=== PATIENT | male | born 1980 | race Caucasian/White ===

== ENCOUNTER 2023-07-25 12:26 | Emergency (ER) | payer OTHER, SELFPAY ==
[2023-07-25 12:31] VITALS: BP 122/78; PULSE 96; RESP 22; TEMP 36.3; O2SAT 95; BMI 33.6
--- NOTE | 2023-07-25 12:49 | ED_ITS ---
HPI - General Adult General Date Seen: 07/25/23 Chief complaint: Neck Injury/Pain Stated complaint: inflamed neck Time Seen by Provider: 07/25/23 12:49 History of Present Illness HPI narrative: This is a 42-year-old male sent to the ER today from his clinic, by Dr. Victor, for evaluation of a swollen lump involving his neck. He is generally healthy. No long-term medical conditions, diabetes, hypertension, coronary disease. He notes that he has had symptoms of gradually increasing swelling and pressure involving the right side of his neck. He is not exactly sure when it started but perhaps a week or so ago. It has been getting steadily worse over time. It is not really associated with any sore tonsils or classic ?sore throat?. No fever chills. No cough. No trouble swallowing. He has noted that for the past few nights he has been having trouble breathing because of the pressure from his neck seems to make it hard for him to breathe. He has had trouble sleeping. He has not had any cough. No pain in his chest. No palpitations. No fever. No abdominal pain. He does note that he has had recent weight gain of about 15 lb. He feels like most of that is just fluid in around his neck. He feels like his face is a little bit more swollen normal as well. He has had a couple of headaches during the day. There is not really positional. He has not noted any flushing or plethora of his face. No previous history of any malignancy lymphadenopathy, immune system disorders. Related Data Home Medications Medication Instructions Recorded Confirmed No Known Home Medications 07/25/23 07/25/23 Allergies Allergy/AdvReac Type Severity Reaction Status Date / Time No Known Drug Allergies Allergy Verified 07/25/23 11:08 [facility] Social History Smoking Status: Never smoker Do you use any of these nicotine containing products: None Second hand tobacco smoke exposure: No How often do you have a drink containing alcohol: monthly or less How many standard drinks containing alcohol do you have on a typical day: 1 or 2 How often do you have six or more drinks on one occasion: Less than monthly AUDIT-C Alcohol total score: 2 Non-prescribed substance use: denies use service: No Exam Narrative: Exam Narrative: Constitutional: Appears well-developed and well-nourished. Alert. Conversant. Non toxic. HENT: Head: Atraumatic. Nose: Nose normal. Mouth/Throat: Oral mucosa is clear and moist. no trismus. Pharynx normal. Tonsils symmetric. No tonsillar enlargement, erythema, or exudate. Perhaps subtle swelling of his face but no plethora or redness. Eyes: Conjunctivae normal. EOM normal. Pupils equal, round, and reactive to light. No scleral icterus. Neck: He does have ill-defined soft tissue swelling on the right lateral side of his neck and right supraclavicular fossa. There is really no palpable mass. No fluctuance. No definite lymphadenopathy. It is mildly tender to palpation on the right lateral neck, posterior to the SCM muscle. No redness or warmth. There is some fullness in the supraclavicular fossa but no discrete lymph node there. Normal range of motion. Neck supple. No tracheal deviation present. Cardiovascular: Normal rate, regular rhythm. No gallop. No friction rub. No murmur heard. Symmetric radial artery pulses Pulmonary/Chest: Effort normal. No stridor. No respiratory distress. No wheezes. No rales. No rhonchi . No tenderness. Abdominal: Soft. Bowel sounds normal. No distension. No mass. No tenderness. No rebound. No guarding. Musculoskeletal: RUE: Normal range of motion. No tenderness. No deformity LUE: Normal range of motion. No tenderness. No deformity RLE: Normal range of motion. No edema. No tenderness. No deformity LLE: Normal range of motion. No edema. No tenderness. No deformity Lymph: No definitive cervical adenopathy. No submental adenopathy. No axillary adenopathy. He has fullness in his right supraclavicular fossa but no definite node there. Neurological: Alert and oriented to person, place, and time. Normal strength. CN II-VII intact. No sensory deficit. GCS eye subscore is 4. GCS verbal subscore is 5. GCS motor subscore is 6. Normal coordination Skin: Skin is warm and dry. No rash noted. No pallor. Normal capillary refill. Psychiatric: Normal mood. Normal affect. Const: Vital Signs, click to edit/add: Vital Signs - 24 hr 07/25/23 12:31 Temperature 97.3 F L Pulse Rate [Pulse Oximeter] 96 Respiratory Rate 22 Blood Pressure [Ri ght Forearm] 122/78 Pulse Oximetry 95 Oxygen Delivery Me thod Room Air Course Vital Signs Vital signs: Initial Vital Signs Temperature 97.3 F L 07/25/23 12:31 Temperature Source Temporal Artery Scan 07/25/23 12:31 Pulse Rate 96 07/25/23 12:31 Pulse Rhythm Regular 07/25/23 12:31 Respiratory Rate 22 07/25/23 12:31 Blood Pressure 122/78 07/25/23 12:31 Blood Pressure Mean 92 07/25/23 12:31 Blood Pressure Position Sitting 07/25/23 12:31 Pulse Oximetry 95 07/25/23 12:31 Oxygen Delivery Method Room Air 07/25/23 12:31 Vital Signs Temperature 97.3 F L 07/25/23 12:31 Pulse Rate 96 07/25/23 12:31 Respiratory Rate 22 07/25/23 12:31 Blood Pressure 122/78 07/25/23 12:31 Pulse Oximetry 95 07/25/23 12:31 Oxygen Delivery Method Room Air 07/25/23 12:31 Temperature 97.3 F L 07/25/23 12:31 Pulse Rate 96 07/25/23 12:31 Respiratory Rate 22 07/25/23 12:31 Blood Pressure 122/78 07/25/23 12:31 Pulse Oximetry 95 07/25/23 12:31 Oxygen Delivery Method Room Air 07/25/23 12:31 Medical Decision Making MDM Narrative Medical decision making narrative: Patient presents with a few week history of weight gain, a 1 week history of a nondescript swelling in his right lateral neck. He notes that the swelling has been making it difficult for him to sleep at night because it affects his breathing but he is not really short of breath. No signs of any stridor, airway compromise or any visible tracheal shift on his clinical exam. Differential would include cervical lymphadenopathy, branchial cleft cyst, deep space neck abscess, thyroid or parathyroid mass extending into the right lateral neck, superior vena cava syndrome, lymphoma, among others. He is clinically nontoxic. Afebrile. Stable vitals. No signs of impending respiratory distress or airway loss. CT imaging of his neck and chest are obtained they do show evidence for a mediastinal mass that is growing around the SVC. This is causing his symptoms, with some obstruction of flow through the vena cava. He has mild swelling of the neck but does not have severe symptoms of SVC syndrome at this time. At this point I do not think he needs immediate hospitalization for emergent radiation therapy. He is hemodynamically stable, neurologically intact, and at this point symptom free. No neck pain, headache. Discussed with his primary care provider. She has started the process to arrange rapid outpatient Oncology follow-up. She or the clinic will contact the patient either tonight or tomorrow morning to arrange that appointment. Discussed with the patient and his . They verbalized their understanding. They understand the importance of close outpatient Oncology follow-up. questions whether not he would benefit from referral to [facility] or [facility]. Plan will be to have him follow up initially with Oncology here and then refer out for additional testing as needed. They are agreeable. They are provided with printed copies of her CT results and lab findings. We discussed possible evolving SVC syndrome and precautions for return to the ER were carefully reviewed. Patient and his both verbalized their understanding. Lab Data Labs: Lab Results 07/25/23 Range/Units 13:22 WBC 5.81 (4.50-11.00) K/uL RBC 5.39 (4.30-5.90) m/uL Hgb 15.7 (13.5-17.5) gm/dL Hct 45.2 (37.0-53.0) % MCV 84 (80-100) fL MCH 29 (26-34) pg MCHC 35 (32-36) gm/dL RDW Coeff of Bia 11.8 (11.5-15.5) % Plt Count 240 (140-440) K/uL Neut % (Auto) 66.5 (42.0-72.0) % Lymph % (Auto) 20.1 (20-44) % [place] % (Auto) 8.6 (0.0-11.0) % Eos % (Auto) 4.1 (0.0-7.0) % Baso % (Auto) 0.5 (0.0-3.0) % Neut # (Auto) 3.86 (1.7-7.0) K/uL Lymph # (Auto) 1.17 (0.90-2.90) K/uL [place] # (Auto) 0.50 (0.00-0.90) K/UL Eos # (Auto) 0.24 (0.00-0.50) K/uL Baso # (Auto) 0.03 (0.00-0.30) K/uL Abs Immat Gran (auto) 0.01 (0.00-0.30) K/uL Imm/Tot Granulo (auto) 0.2 % Sodium 139 (135-149) mmol/L Potassium 4.1 (3.6-5.1) mmol/L Chloride 107 (96-114) mmol/L Carbon Dioxide 27 (20-32) mmol/L Anion Gap 5 L (7-15) mEq/L BUN 20 (5-24) mg/dL Creatinine 1.1 (0.5-1.5) mg/dL Estimated Creat Clear 100.88 Estimated GFR 87 ml/min Glucose 85 (60-115) mg/dL Lactate 0.9 (0.5-1.9) mmol/L Calcium 9.0 (8.4-10.6) mg/dL Total Bilirubin 0.6 (0.1-1.5) mg/dL AST 42 H (12-35) U/L ALT 30 (4-50) U/L Alkaline Phosphatase 58 (40-150) U/L Total Protein 7.6 (6.0-8.3) g/dL Albumin 4.4 (3.3-5.0) g/dL Imaging Data CT neck: Attestation: I have reviewed the pertinent imaging results. Radiologist's impression: IMPRESSION: 1. Homogeneously attenuating anterior mediastinal mass encasing the superior vena cava, primary diagnostic considerations for which include lymphoma and thymoma. 2. Enlarged right medial supraclavicular (series 3, image 67) and anterior paratracheal (series 3, image 74) lymph nodes. CT scan - chest: Attestation: I have reviewed the pertinent imaging results. Radiologist's impression: IMPRESSION: Large 11 x 10 x 5 cm anterior mediastinal mass encasing the brachiocephalic vein and superior vena cava. This mass likely represents lymphoma or thymoma. Remainder of the chest is unremarkable. Discharge Plan Discharge Clinical Impression: Mass of mediastinum, Neck swelling Patient Disposition: Home, Self-Care Condition: Stable Instructions: Superior Vena Cava Syndrome (DC) Additional Instructions: Your CT scans confirm that you have a mass in the upper portion of your chest that is compressing the blood flow out of the veins of your neck. This is what is causing the swelling in your neck and in your face. You should receive a phone call from the clinic by tomorrow morning to set up an appointment to see the oncologist for further workup. If you want to follow-up with oncology done of the facility such as [facility] or [facility], you can work with your doctor it with and/ or call them for a referral. If you have any trouble such as worsening pain, worsening headaches, blurry vision, increasing swelling in your face or neck, trouble breathing, chest pain, or any problems, please come back to the ER right away. Prescriptions: No Action No Known Home Medications Follow Up/Referrals: Ramakrishna Tracy MD [Primary Care Provider] - Stand Alone Forms: [employer] Info Instructions
--- NOTE | 2023-07-25 13:01 | CRLHL7_ITS ---
For Patients: As a result of the Century Cures Act, medical imaging exams and procedure reports are released immediately into your electronic medical record. You may view this report before your referring provider. If you have questions, please contact your health care provider. INDICATION: Neck and facial swelling. Weight gain. TECHNIQUE: CT chest was acquired with 95 cc Isovue 370 IV contrast. COMPARISON: None. FINDINGS: Lungs and pleura: No suspicious nodules or infiltrates. No pleural effusions, pleural thickening, or pneumothorax. Heart and vasculature: Heart size is normal. Thoracic aorta and pulmonary artery are normal in caliber. Lymph nodes/mediastinum: Large 11 x 10 x 5 cm soft tissue mass in the anterior right mediastinum is encasing the left brachiocephalic vein and superior vena cava. Chest wall: No masses. Upper abdomen: Normal. Bones: Unremarkable for age. IMPRESSION: Large 11 x 10 x 5 cm anterior mediastinal mass encasing the brachiocephalic vein and superior vena cava. This mass likely represents lymphoma or thymoma. Remainder of the chest is unremarkable. Please note that all CT scans at this facility use dose modulation, iterative reconstruction, and/or weight-based dosing when appropriate to reduce radiation dose to as low as reasonably achievable. Dictated by Yovanny Flores MD @ 07/25/2023 3:01:50 PM (Electronically Signed)
--- NOTE | 2023-07-25 13:01 | CRLHL7_ITS ---
For Patients: As a result of the Century Cures Act, medical imaging exams and procedure reports are released immediately into your electronic medical record. You may view this report before your referring provider. If you have questions, please contact your health care provider. INDICATION: Right neck swelling facial swelling headache. TECHNIQUE: CT of the neck from the skull base to the thoracic inlet following administration of 95 cc iodinated intravenous contrast. COMPARISON: None available. FINDINGS: A bulky homogeneous attenuating mass anterior mediastinal mass is partially imaged. The lesion is distinct from the thyroid gland. Prominent adjacent right supraclavicular lymph node measures up to 2.3 cm (series 3, image 67) and enlarged anterior paratracheal node measures up to 2.0 cm (series 3, image 74). The lesion results in significant mass effect the superior vena cava. No suspicious mucosal based asymmetry or enhancement. Unremarkable appearance of the thyroid gland, which is distinct from the above described lesion. Normal parotid and submandibular glands. Intrathoracic findings are reported on concurrently performed CT chest. The major vascular structures are normal in appearance. No suspicious osseous lesion is identified. IMPRESSION: 1. Homogeneously attenuating anterior mediastinal mass encasing the superior vena cava, primary diagnostic considerations for which include lymphoma and thymoma. 2. Enlarged right medial supraclavicular (series 3, image 67) and anterior paratracheal (series 3, image 74) lymph nodes. Please note that all CT scans at this facility use dose modulation, iterative reconstruction, and/or weight-based dosing when appropriate to reduce radiation dose to as low as reasonably achievable. Dictated by Eduardo Flowers MD @ 07/25/2023 2:41:12 PM (Electronically Signed)
[2023-07-25 13:31] LABS: Lactate* 0.9 mmol/L (0.5-1.9)
[2023-07-25 13:37] LABS: Basophils Absolute Auto 0.03 K/uL (0.00-0.30); Basophils Percent Auto 0.5 % (0.0-3.0); Eosinophils Absolute Auto 0.24 K/uL (0.00-0.50); Eosinophils Percent Auto 4.1 % (0.0-7.0); Hematocrit 45.2 % (37.0-53.0); Hemoglobin* 15.7 gm/dL (13.5-17.5); Immature Granulocytes Abs Auto 0.01 K/uL (0.00-0.30); Immature Granulocytes Pct Auto 0.2 %; Lymphocytes Absolute Auto 1.17 K/uL (0.90-2.90); Lymphocytes Percent Auto 20.1 % (20-44); Mean Corpuscular HGB Conc 35 gm/dL (32-36); Mean Corpuscular Hemoglobin 29 pg (26-34); Mean Corpuscular Volume 84 fL (80-100); Monocytes Percent Auto 8.6 % (0.0-11.0); Neutrophils Absolute Auto 3.86 K/uL (1.7-7.0); Neutrophils Percent Auto 66.5 % (42.0-72.0); Platelet Count* 240 K/uL (140-440); RDW Coefficient of Variation % 11.8 % (11.5-15.5); Red Blood Count 5.39 m/uL (4.30-5.90); White Blood Count* 5.81 K/uL (4.50-11.00)
[2023-07-25 13:45] LABS: Albumin* 4.4 g/dL (3.3-5.0); Chloride* 107 mmol/L (96-114); Sodium* 139 mmol/L (135-149)
[2023-07-25 13:46] LABS: Potassium* 4.1 mmol/L (3.6-5.1)
[2023-07-25 13:48] LABS: Alkaline Phosphatase* 58 U/L (40-150); Anion Gap 5 mEq/L (7-15); Aspartate Amino Transferase* 42 U/L (12-35); Bilirubin Total* 0.6 mg/dL (0.1-1.5); Blood Urea Nitrogen* 20 mg/dL (5-24); Carbon Dioxide* 27 mmol/L (20-32); Creatinine* 1.1 mg/dL (0.5-1.5); Est. Creatinine Clearance* 100.88; Estimated Glomerular Filt Rate 87 ml/min; Total Protein* 7.6 g/dL (6.0-8.3)
[2023-07-25 13:49] LABS: Alanine Aminotransferase* 30 U/L (4-50); Glucose* 85 mg/dL (60-115)
[2023-07-25 13:52] LABS: Slide Review Reflex No
--- NOTE | 2023-07-25 17:13 | ED.NURSE ---
Patient's called today stating that she spoke with patient's provider on the phone after departure today and was advised, given the size of the tumor as well as location, to go to the [facility] Emergency Room for further treatment and evaluation. This marine underwriter called imaging department and has had images pushed to [facility]. Call was also made to [facility] admission and transfer center to expect patient's arrival at the ER in the next couple hours.
== END 2023-07-25 15:53 | disposition home or self-care (01) ==
PROVIDERS: Emergency Provider Emergency Medicine; PCP Family Medicine
DX: R22.1 Localized swelling, mass and lump, neck (principal); J98.59 Other diseases of mediastinum, not elsewhere classified
CPT/HCPCS: 36415; 70491; 71260; 80053; 83605; 85025; 99283; 99284; Q9967

== ENCOUNTER 2023-09-07 11:00 | Outpatient (RCR) | payer OTHER, SELFPAY ==
[2023-08-14 11:18] LABS: Hematocrit 41.6 % (37.0-53.0); Hemoglobin* 14.2 gm/dL (13.5-17.5); Lymphocytes Percent Auto 0.8 % (20-44); Mean Corpuscular HGB Conc 34 gm/dL (32-36); Mean Corpuscular Hemoglobin 29 pg (26-34); Mean Corpuscular Volume 86 fL (80-100); Monocytes Percent Auto 0.2 % (0.0-11.0); Neutrophils Percent Auto 86.2 % (42.0-72.0); Platelet Count* 146 K/uL (140-440); RDW Coefficient of Variation % 12.1 % (11.5-15.5); Red Blood Count 4.86 m/uL (4.30-5.90)
[2023-08-14 11:19] LABS: Eosinophils Percent Auto 0.5 % (0.0-7.0); Immature Granulocytes Pct Auto 12.3 %
[2023-08-14 11:54] LABS: Slide Review Reflex Yes
[2023-08-14 11:55] LABS: Slide Review Acceptable Review (Acceptable)
--- NOTE | 2023-08-16 08:44 | ONC.NURNOTE ---
Pt LM saying he received a call about an appt. Called pt back; LMOM confirming labs tomorrow 1130.
[2023-08-17 12:00] VITALS: BP 128/79; PULSE 102; RESP 16; TEMP 36.8; O2SAT 94
[2023-08-17 15:09] LABS: Basophils Percent Auto 1.5 % (0.0-3.0); Eosinophils Percent Auto 2.5 % (0.0-7.0); Hematocrit 43.7 % (37.0-53.0); Hemoglobin* 14.8 gm/dL (13.5-17.5); Immature Granulocytes Pct Auto 0.5 %; Lymphocytes Percent Auto 22.1 % (20-44); Mean Corpuscular HGB Conc 34 gm/dL (32-36); Mean Corpuscular Hemoglobin 29 pg (26-34); Mean Corpuscular Volume 86 fL (80-100); Monocytes Percent Auto 21.1 % (0.0-11.0); Neutrophils Percent Auto 52.3 % (42.0-72.0); Platelet Count* 131 K/uL (140-440); RDW Coefficient of Variation % 12.1 % (11.5-15.5); Red Blood Count 5.09 m/uL (4.30-5.90)
[2023-08-17 15:14] LABS: Slide Review Reflex Yes; White Blood Count* 1.99 K/uL (4.50-11.00)
[2023-08-21 12:00] LABS: Basophils Absolute Auto 0.06 K/uL (0.00-0.30); Basophils Percent Auto 0.9 % (0.0-3.0); Eosinophils Absolute Auto 0.04 K/uL (0.00-0.50); Eosinophils Percent Auto 0.6 % (0.0-7.0); Hematocrit 43.2 % (37.0-53.0); Hemoglobin* 14.2 gm/dL (13.5-17.5); Immature Granulocytes Abs Auto 1.17 K/uL (0.00-0.30); Immature Granulocytes Pct Auto 16.8 %; Lymphocytes Percent Auto 12.4 % (20-44); Mean Corpuscular HGB Conc 33 gm/dL (32-36); Mean Corpuscular Hemoglobin 29 pg (26-34); Mean Corpuscular Volume 87 fL (80-100); Monocytes Percent Auto 6.3 % (0.0-11.0); Neutrophils Absolute Auto 4.38 K/uL (1.7-7.0); Platelet Count* 138 K/uL (140-440); RDW Coefficient of Variation % 12.9 % (11.5-15.5); Red Blood Count 4.94 m/uL (4.30-5.90); White Blood Count* 6.95 K/uL (4.50-11.00)
[2023-08-21 12:36] LABS: Slide Review Reflex Yes
[2023-08-21 12:37] LABS: Slide Review Acceptable Review (Acceptable)
[2023-08-24 11:53] LABS: Basophils Absolute Auto 0.09 K/uL (0.00-0.30); Basophils Percent Auto 1.1 % (0.0-3.0); Eosinophils Percent Auto 1.3 % (0.0-7.0); Hematocrit 42.7 % (37.0-53.0); Hemoglobin* 14.4 gm/dL (13.5-17.5); Immature Granulocytes Abs Auto 0.65 K/uL (0.00-0.30); Immature Granulocytes Pct Auto 8.2 %; Lymphocytes Percent Auto 10.8 % (20-44); Mean Corpuscular HGB Conc 34 gm/dL (32-36); Mean Corpuscular Hemoglobin 29 pg (26-34); Mean Corpuscular Volume 87 fL (80-100); Monocytes Percent Auto 8.4 % (0.0-11.0); Neutrophils Absolute Auto 5.54 K/uL (1.7-7.0); Neutrophils Percent Auto 70.2 % (42.0-72.0); Platelet Count* 165 K/uL (140-440); RDW Coefficient of Variation % 12.8 % (11.5-15.5); Red Blood Count 4.91 m/uL (4.30-5.90); White Blood Count* 7.89 K/uL (4.50-11.00)
[2023-08-24 12:09] LABS: Slide Review Reflex Yes
[2023-08-24 13:09] LABS: Slide Review Acceptable Review (Acceptable)
[2023-08-24] MEDS: SODIUM CHLORIDE 0.9 % (FLUSH) 10 ML SYRINGE IVF (15:52)
[2023-08-28] MEDS: SODIUM CHLORIDE 0.9 % (FLUSH) 10 ML SYRINGE IVF (10:26)
== END 2024-02-10 23:59 | disposition home or self-care (01) ==
LOC: CCIC 11:00
PROVIDERS: PCP Family Medicine; Referring Provider Family Medicine; Visit Provider Clinical Nurse Specialist
DX: C85.21 Mediastinal (thymic) large B-cell lymphoma, lymph nodes of head, face, and neck (principal)
CPT/HCPCS: 36415; 36592; 85025; 99211; A4221